=== PATIENT | male | born 1975 | race Two or more races ===

== ENCOUNTER 2023-04-14 07:19 | Emergency (ER) | payer BC, OTHER ==
[~2023-04-14] VITALS: Ht 182.9 cm; Wt 99.9 kg
[2023-04-14 07:19] VITALS: BP 136/94
[2023-04-14] MEDS ORDERED: LISI10TA34 PO (09:12)
== END 2023-04-14 09:16 | disposition home or self-care (01) ==
LOC: ER 07:19
DX: I10 Essential (primary) hypertension (principal); E11.9 Type 2 diabetes mellitus without complications; Z79.899 Other long term (current) drug therapy; Z88.5 Allergy status to narcotic agent; Z88.8 Allergy status to other drugs, medicaments and biological substances
CPT/HCPCS: 70450

== ENCOUNTER 2023-04-29 00:45 | Emergency (ER) | payer BC ==
[~2023-04-29] VITALS: Ht 182.9 cm; Wt 100.0 kg
[~2023-04-29 00:45] MED LIST: LISI10TA34 PO
[2023-04-29 02:39] LABS: Urine Bacteria NONE SEEN /hpf (None Seen); Urine Blood Negative /uL (Negative); Urine Specific Gravity 1.014 (1.001-1.035); Urine WBC <1 /hpf (0 - 3)
[2023-04-29 02:40] LABS: Basophils # (auto) 0 10 ^3/uL (0-0.2); Basophils % (auto) 0.5 % (0.0-2.0); Eosinophils # (auto) 0.1 10 ^3/uL (0-0.8); Eosinophils % (auto) 1.1 % (0.0-7.0); Hematocrit 44.5 % (41.0-53.0); Hemoglobin 15.8 g/dL (13.5-17.5); Lymphocytes # (auto) 1.4 10 ^3/uL (0.4-5.4); Lymphocytes % (auto) 16.6 % (10.0-50.0); Mean Corpuscular Hgb Conc. 35.5 g/dL (32.0-36.0); Mean Corpuscular Volume 92.8 fL (80.0-100.0); Monocytes # (auto) 0.6 10 ^3/uL (0-1.3); Neutrophils # (auto) 6.3 10 ^3/uL (1.6-8.6); Neutrophils % (auto) 74.8 % (37.0-80.0); Red Cell Distribution Width 12.9 % (11.8-14.3); White Blood Cell 8.5 10^3/uL (4.4-10.8)
[2023-04-29 02:53] LABS: Albumin 4.1 g/dL (3.4-5.0); Potassium 3.9 mmol/L (3.5-5.1)
[2023-04-29 02:55] LABS: BUN/Creatinine Ratio 14.1 (10.0-20.0)
[2023-04-29 02:58] LABS: Bilirubin, Total 0.7 mg/dL (0.2-1.0); Total Protein 7.7 g/dL (6.4-8.2)
[2023-04-29 06:10] VITALS: PULSE 62; RESP 16; O2SAT 98
[2023-04-29] MEDS ORDERED: ONDANSETRON HCL 4 MG/2 ML VIAL IM ONE (06:15)
[2023-04-29] MEDS ORDERED: MORPHINE SULFATE INJ 2 MG/ml SYRG IM ONE (06:15)
[2023-04-29] MEDS ORDERED: MORPHINE SULFATE 4 MG/ML SYR/VIAL ONE (06:15)
[2023-04-29 08:49] VITALS: BP 133/83; PULSE 65; RESP 17; TEMP 98.7; O2SAT 97
[2023-04-29] MEDS ORDERED: METO-281 PO (08:55)
[2023-04-29] MEDS ORDERED: PANT40TA2 PO (08:55)
[2023-04-29] MEDS ORDERED: ACET-1304 PO (08:55)
[2023-04-29] MEDS ORDERED: MELO-335 PO (08:55)
== END 2023-04-29 09:04 | disposition left against medical advice (07) ==
LOC: ER 00:45
DX: K85.90 Acute pancreatitis without necrosis or infection, unspecified (principal); Z79.899 Other long term (current) drug therapy; Z88.5 Allergy status to narcotic agent; Z88.6 Allergy status to analgesic agent
CPT/HCPCS: 36415; 74176; 80053; 81001; 83690; 85025; 96372; 99285; J2270; J2405